=== PATIENT | female | born 1960 | race Caucasian/White ===

== ENCOUNTER → 2016-08-14 | Outpatient (CLI) | payer OTHER ==
[2016-08-14 14:05] LABS: BASO % 0.4 %; BASO ABS # 0.02 K/uL (0-0.2); EOS % 1.3 %; HEMATOCRIT 34.1 % (37-47); LYMPH % 30.6 %; LYMPH ABS # 1.67 K/uL (1.2-3.4); MEAN CELL VOLUME 73.8 fL (80-100); MEAN CORPUSCULAR HEMOGLOBIN 22.7 pg (25-34); MEAN CORPUSCULAR HGB CONC 30.8 g/dl (32-36); MEAN PLATELET VOLUME 9.9 fL (7.4-10.4); MONO % 9.5 %; NEUT % 58.2 %; PLATELET COUNT 290 K/uL (130-400); RED BLOOD COUNT 4.62 M/uL (4.2-5.4); WHITE BLOOD COUNT 5.45 K/uL (4.8-10.8)
[2016-08-14 14:10] LABS: ALT/SGPT 16 U/L (12-78); BLOOD UREA NITROGEN 8 mg/dl (7-18); BUN/CREATININE RATIO 11.3 (10-20); CALCIUM 8.5 mg/dl (8.5-10.1); CARBON DIOXIDE 26 mmol/L (21-32); CHLORIDE 107 mmol/L (98-107); CHOLESTEROL 133 mg/dl (0-200); CREATININE 0.69 mg/dl (0.60-1.20); ESTIMATED AVERAGE GLUCOSE 134 mg/dl; GLUCOSE 69 mg/dl (70-99); HA1C FLAG Normal (Normal); POTASSIUM 4.3 mmol/L (3.5-5.1); SODIUM 140 mmol/L (136-145); TRIGLYCERIDES 90 mg/dl (0-150); VERY LOW DENSITY LIPOPROT CALC 18 mg/dl
[2016-08-14 14:14] LABS: ALKALINE PHOSPHATASE 131 U/L (45-117); AST/SGOT 15 U/L (15-37); CHOLESTEROL/HDL RATIO 2.1; HDL CHOLESTEROL 62 mg/dl; LDL CHOLESTEROL CALCULATED 53 mg/dl
[2016-08-14 14:30] LABS: COMPLETE YES
== END | disposition home or self-care (01) ==
LOC: C.LABSPEC 16:31
PROVIDERS: ATTEND Family Medicine
DX: E11.9 Type 2 diabetes mellitus without complications (principal); E78.2 Mixed hyperlipidemia; I10 Essential (primary) hypertension

== ENCOUNTER → 2016-12-19 | Outpatient (CLI) | payer OTHER ==
[2016-12-19 13:37] LABS: BASO % 0.4 %; BASO ABS # 0.02 K/uL (0-0.2); EOS % 1.9 %; HEMATOCRIT 34.8 % (37-47); IG% 0.2 %; LYMPH % 40.9 %; LYMPH ABS # 1.92 K/uL (1.2-3.4); MEAN CELL VOLUME 73.9 fL (80-100); MEAN CORPUSCULAR HEMOGLOBIN 22.1 pg (25-34); MEAN CORPUSCULAR HGB CONC 29.9 g/dl (32-36); MONO % 6.6 %; PLATELET COUNT 264 K/uL (130-400); RED BLOOD COUNT 4.71 M/uL (4.2-5.4); WHITE BLOOD COUNT 4.69 K/uL (4.8-10.8)
[2016-12-19 13:59] LABS: ANISOCYTOSIS PRESENT; COMPLETE YES; MICROCYTOSIS PRESENT; POLYCHROMASIA 1+
[2016-12-19 14:00] LABS: ALKALINE PHOSPHATASE 154 U/L (45-117); ALT/SGPT 19 U/L (12-78); AST/SGOT 12 U/L (15-37); BLOOD UREA NITROGEN 10 mg/dl (7-18); BUN/CREATININE RATIO 11.8 (10-20); CALCIUM 8.1 mg/dl (8.5-10.1); CARBON DIOXIDE 27 mmol/L (21-32); CHLORIDE 107 mmol/L (98-107); CREATININE 0.82 mg/dl (0.60-1.20); GLUCOSE 182 mg/dl (70-99); POTASSIUM 4.3 mmol/L (3.5-5.1); SODIUM 140 mmol/L (136-145)
[2016-12-20 10:24] LABS: FERRITIN 3.8 ng/ml (8.0-388.0); TOTAL IRON BINDING CAPACITY 452 mcg/dl (250-450)
== END | disposition home or self-care (01) ==
LOC: C.LABSPEC 12:56
PROVIDERS: ATTEND Family Medicine
DX: I10 Essential (primary) hypertension (principal); R00.2 Palpitations; R06.02 Shortness of breath

== ENCOUNTER → 2017-01-02 | Outpatient (CLI) | payer OTHER ==
[2017-01-02 18:15] LABS: BASO % 0.7 %; BASO ABS # 0.04 K/uL (0-0.2); EOS % 1.8 %; HEMATOCRIT 33.8 % (37-47); IG% 0.2 %; LYMPH % 38.8 %; LYMPH ABS # 2.19 K/uL (1.2-3.4); MEAN CELL VOLUME 75.3 fL (80-100); MEAN CORPUSCULAR HEMOGLOBIN 22.7 pg (25-34); MEAN CORPUSCULAR HGB CONC 30.2 g/dl (32-36); MONO % 11.2 %; NEUT % 47.3 %; PLATELET COUNT 249 K/uL (130-400); RED BLOOD COUNT 4.49 M/uL (4.2-5.4); WHITE BLOOD COUNT 5.64 K/uL (4.8-10.8)
[2017-01-02 19:43] LABS: ANISOCYTOSIS PRESENT; COMPLETE YES; MICROCYTOSIS PRESENT; POLYCHROMASIA 1+
== END | disposition home or self-care (01) ==
LOC: C.LABSPEC 17:54
PROVIDERS: ATTEND Family Medicine
DX: R79.9 Abnormal finding of blood chemistry, unspecified (principal)

== ENCOUNTER → 2017-02-11 | Outpatient (CLI) | payer OTHER ==
[2017-02-11 14:21] LABS: BASO % 0.7 %; BASO ABS # 0.03 K/uL (0-0.2); EOS % 1.4 %; HEMATOCRIT 39.6 % (37-47); LYMPH % 40.5 %; MEAN CELL VOLUME 82.8 fL (80-100); MEAN CORPUSCULAR HEMOGLOBIN 25.9 pg (25-34); MEAN CORPUSCULAR HGB CONC 31.3 g/dl (32-36); MEAN PLATELET VOLUME 10.8 fL (7.4-10.4); MONO % 12.1 %; NEUT % 45.3 %; PLATELET COUNT 207 K/uL (130-400); RED BLOOD COUNT 4.78 M/uL (4.2-5.4)
[2017-02-11 14:28] LABS: ALT/SGPT 26 U/L (12-78); AST/SGOT 13 U/L (15-37); BLOOD UREA NITROGEN 11 mg/dl (7-18); BUN/CREATININE RATIO 13.5 (10-20); CALCIUM 8.8 mg/dl (8.5-10.1); CARBON DIOXIDE 30 mmol/L (21-32); CHLORIDE 106 mmol/L (98-107); CHOLESTEROL 136 mg/dl (0-200); CREATININE 0.82 mg/dl (0.60-1.20); GLUCOSE 112 mg/dl (70-99); POTASSIUM 4.3 mmol/L (3.5-5.1); SODIUM 139 mmol/L (136-145); TRIGLYCERIDES 73 mg/dl (0-150); VERY LOW DENSITY LIPOPROT CALC 15 mg/dl
[2017-02-11 14:32] LABS: ALKALINE PHOSPHATASE 111 U/L (45-117); CHOLESTEROL/HDL RATIO 2.1; HDL CHOLESTEROL 64 mg/dl; LDL CHOLESTEROL CALCULATED 57 mg/dl
[2017-02-11 14:39] LABS: ESTIMATED AVERAGE GLUCOSE 123 mg/dl; HA1C FLAG Normal (Normal)
[2017-02-11 14:47] LABS: COMPLETE YES
== END | disposition home or self-care (01) ==
LOC: C.LABSPEC 13:37
PROVIDERS: ATTEND Family Medicine
DX: R60.0 Localized edema (principal); E78.2 Mixed hyperlipidemia; I10 Essential (primary) hypertension; E11.9 Type 2 diabetes mellitus without complications

== ENCOUNTER → 2017-08-18 | Outpatient (CLI) | payer OTHER ==
[2017-08-18 18:34] LABS: BASO % 0.6 %; BASO ABS # 0.03 K/uL (0-0.2); EOS % 2.6 %; EOS ABS # 0.12 K/uL (0-0.5); HEMATOCRIT 40.3 % (37-47); HEMOGLOBIN 13.2 g/dL (12.0-16.0); IG# 0.01 K/uL (0.00-0.02); LYMPH % 45.5 %; LYMPH ABS # 2.14 K/uL (1.2-3.4); MEAN CELL VOLUME 94.2 fL (80-100); MEAN CORPUSCULAR HEMOGLOBIN 30.8 pg (25-34); MEAN CORPUSCULAR HGB CONC 32.8 g/dl (32-36); MEAN PLATELET VOLUME 10.6 fL (7.4-10.4); MONO % 11.7 %; MONO ABS # 0.55 K/uL (0.11-0.59); NEUT % 39.4 %; NEUT ABS # 1.85 K/uL (1.4-6.5); PLATELET COUNT 221 K/uL (130-400); RED CELL DISTRIBUTION WIDTH CV 13.1 % (11.5-14.5); RED CELL DISTRIBUTION WIDTH SD 44.8 fL (36.4-46.3)
[2017-08-18 18:53] LABS: ALBUMIN 3.4 gm/dl (3.4-5.0); ALT/SGPT 21 U/L (12-78); AST/SGOT 13 U/L (15-37); BLOOD UREA NITROGEN 8 mg/dl (7-18); CALCIUM 8.4 mg/dl (8.5-10.1); CARBON DIOXIDE 28 mmol/L (21-32); CREATININE 0.89 mg/dl (0.60-1.20); GLUCOSE 69 mg/dl (70-99); POTASSIUM 3.8 mmol/L (3.5-5.1); SODIUM 136 mmol/L (136-145)
[2017-08-18 18:56] LABS: ALKALINE PHOSPHATASE 105 U/L (45-117); CHOLESTEROL 123 mg/dl (0-200); LDL CHOLESTEROL CALCULATED 43 mg/dl; TOTAL PROTEIN 6.8 gm/dl (6.4-8.2)
[2017-08-19 05:48] LABS: HEMOGLOBIN A1C 5.7 % (4.5-5.6)
== END | disposition home or self-care (01) ==
LOC: C.LABSPEC 10:38
PROVIDERS: ATTEND Family Medicine
DX: E11.9 Type 2 diabetes mellitus without complications (principal); I10 Essential (primary) hypertension; E78.2 Mixed hyperlipidemia

== ENCOUNTER → 2018-02-16 | Outpatient (CLI) | payer OTHER ==
[2018-02-16 14:24] LABS: BASO % 0.6 %; BASO ABS # 0.03 K/uL (0-0.2); EOS % 2.2 %; EOS ABS # 0.11 K/uL (0-0.5); HEMOGLOBIN 14.3 g/dL (12.0-16.0); LYMPH % 36.2 %; LYMPH ABS # 1.85 K/uL (1.2-3.4); MEAN CELL VOLUME 93.4 fL (80-100); MEAN CORPUSCULAR HEMOGLOBIN 30.4 pg (25-34); MEAN CORPUSCULAR HGB CONC 32.5 g/dl (32-36); MONO % 8.2 %; MONO ABS # 0.42 K/uL (0.11-0.59); NEUT % 52.8 %; PLATELET COUNT 244 K/uL (130-400); RED CELL DISTRIBUTION WIDTH CV 12.5 % (11.5-14.5); RED CELL DISTRIBUTION WIDTH SD 42.4 fL (36.4-46.3); WHITE BLOOD COUNT 5.11 K/uL (4.8-10.8)
[2018-02-16 14:40] LABS: ALBUMIN 3.5 gm/dl (3.4-5.0); ALKALINE PHOSPHATASE 134 U/L (45-117); ALT/SGPT 22 U/L (12-78); AST/SGOT 19 U/L (15-37); BLOOD UREA NITROGEN 7 mg/dl (7-18); CALCIUM 8.5 mg/dl (8.5-10.1); CARBON DIOXIDE 29 mmol/L (21-32); CHOLESTEROL 134 mg/dl (0-200); CREATININE 0.79 mg/dl (0.60-1.20); GLUCOSE 110 mg/dl (70-99); LDL CHOLESTEROL CALCULATED 44 mg/dl; POTASSIUM 4.2 mmol/L (3.5-5.1); SODIUM 138 mmol/L (136-145); TOTAL PROTEIN 7.2 gm/dl (6.4-8.2)
[2018-02-17 06:44] LABS: HEMOGLOBIN A1C 6.1 % (4.5-5.6)
== END | disposition home or self-care (01) ==
LOC: C.LABSPEC 13:29
PROVIDERS: ATTEND Family Medicine
DX: R60.0 Localized edema (principal); I10 Essential (primary) hypertension; E11.9 Type 2 diabetes mellitus without complications; E78.2 Mixed hyperlipidemia